=== PATIENT | male | born 1980 | race Caucasian/White ===

== ENCOUNTER 2019-02-24 13:49 | Outpatient (REF) | payer SELFPAY ==
[2019-02-24 19:16] LABS: ALT 23 U/L (16-63)
== END 2019-02-24 14:09 ==
LOC: NCHCN 13:49
PROVIDERS: PCP Family Medicine; Visit Provider Family Medicine
DX: E78.5 Hyperlipidemia, unspecified (principal)
CPT/HCPCS: 84460

== ENCOUNTER 2019-03-31 01:21 | Outpatient (CLI) | payer SELFPAY ==
--- NOTE | 2019-03-31 13:26 | DI.RAD_ITS ---
EXAM: XR CERVICAL SPINE COMP 4-5V INDICATION: CERVICALGIA, M54.2, RIGHT-SIDED PAIN. COMPARISON: No exams were available for comparison TECHNIQUE: 2D digital imaging was performed. FINDINGS: The odontoid is intact. The lateral masses are well aligned. There is normal alignment of the cervi presley spine. Anterior cervical fusion is seen at C4-C5. No acute fractures or subluxations are present. There is mild narrowing of the right neural foramen at C4-C5. Foramina are otherwise well maintained . The bones are normally mineralized. The soft tissues are unremarkable. IMPRESSION: Postsurgical changes at C4-C5. Mild narrowing of the right neural foramen at C4-C5.
== END 2019-03-31 01:41 ==
PROVIDERS: PCP Family Medicine; Visit Provider Family Medicine
DX: M54.2 Cervicalgia (principal); Z98.1 Arthrodesis status; M99.51 Intervertebral disc stenosis of neural canal of cervical region
CPT/HCPCS: 72050

== ENCOUNTER 2019-06-02 15:07 | Outpatient (CLI) | payer OTHER, SELFPAY ==
--- NOTE | 2019-06-02 14:35 | DI.MRI_ITS ---
EXAM: MR CERVICAL SPINE WO CLINICAL HISTORY: CERVICALGIA, M54.2. TECHNIQUE: Multiplanar multisequence MRI was performed. MR examination of the cervical spine was pe rformed according to the usual protocol. COMPARISON: MRI - CERVICAL SPINE WO CONT from 06/20/2013 FINDINGS: No bony central canal spinal stenosis is seen. No significant neural foraminal stenosis. There is p rior anterior fusion at C4-5. There is disc herniation at C3-4, which is broad-based but most prominent centrally where it causes m ild deformity of the anterior cord surface. No intracord signal abnormality seen. No other disc her niation identified. No other cord abnormality seen. Visualized posterior fossa structures appear in tact. IMPRESSION: Broad-based disc herniation most prominent centrally at C3-4 with impingement on and deformity of ant erior cord surface at this level. Prior anterior fusion at C4-5 noted.
== END 2019-06-02 15:27 ==
PROVIDERS: PCP Family Medicine; Visit Provider Family Medicine
DX: M54.2 Cervicalgia (principal); M50.21 Other cervical disc displacement, high cervical region; Z98.1 Arthrodesis status
CPT/HCPCS: 72141

== ENCOUNTER 2020-02-27 18:54 | Outpatient (REF) | payer OTHER, SELFPAY ==
[2020-02-27 19:18] LABS: HCT 42.3 % (40.0-50.0); HGB 14.1 g/dL (13.5-17.5); MCH 30.5 pg (27.0-33.0); MCHC 33.3 % (32.0-36.0); MCV 91.6 fL (80-95); MPV 10.5 fL (8.0-11.0); Platelet Count 212 10^3/uL (130-400); RBC 4.62 10^6/uL (4.36-5.78); RDW 11.9 % (11.8-14.1); RDW-SD 39.5 fL; WBC 6.38 10^3/uL (4.4-10.8)
[2020-02-27 19:51] LABS: ALT 32 U/L (16-63); AST 20 U/L (15-37); Albumin 4.4 g/dL (3.4-5.0); Alkaline Phosphatase 58 U/L (46-116); Anion Gap 7.2 mmol/L (3-11); BUN 14 mg/dL (7-18); Bilirubin, Total 0.4 mg/dL (0.2-1.0); CO2 28.8 mmol/L (21.0-32.0); CREATININE 1.09 mg/dL (0.70-1.30); Calcium 9.1 mg/dL (8.5-10.1); Chloride 102 mmol/L (98-107); Glucose 109 mg/dL (74-106); Potassium 3.7 mmol/L (3.5-5.1); Sodium 138 mmol/L (136-145); TSH (W/Ref FT4) 1.54 uIU/mL (0.36-3.74); Total Protein 7.5 g/dL (6.4-8.2)
== END 2020-02-27 19:14 ==
LOC: NCHCN 18:54
PROVIDERS: PCP Family Medicine; Visit Provider Family Medicine
DX: Z51.81 Encounter for therapeutic drug level monitoring (principal)
CPT/HCPCS: 80053; 85027; 84443

== ENCOUNTER 2021-09-05 15:08 | Emergency (ER) | payer SELFPAY ==
[2021-09-05] VITALS (18 sets, daily range): BP systolic 128–146; BP diastolic 72–97; PULSE 68–83; RESP 6–18; TEMP 36.7–37.3; O2SAT 94–100
--- NOTE | 2021-09-05 15:29 | ED.GENADUL_ITS ---
Discharge Plan Disposition Patient Disposition: HOME Condition: Improving Discharge Details Clinical Impression: Gastroenteritis, Dehydration, Hypokalemia Primary Care Provider: Saundra Lowery V ED Provider: Dylon Washington Home Meds and New Rx's Prescriptions: Continued quetiapine [Seroquel] 300 MG tablet 300 mg PO HS 0RF fluoxetine 40 mg capsule 40 mg DAILY 0RF Label Comments: TAKE 1 CAPSULE BY MOUTH ONCE DAILY trazodone 50 mg tablet 50 mg DAILY 0RF Label Comments: TAKE 1 TABLET BY MOUTH EVERY NIGHT omeprazole 40 mg capsule,delayed release(DR/EC) 40 mg DAILY 0RF Label Comments: TAKE 1 CAPSULE BY MOUTH ONCE DAILY simvastatin 40 mg tablet 40 mg DAILY 0RF Label Comments: TAKE ONE TABLET BY MOUTH EVERY DAY gabapentin 300 mg capsule 300 mg DAILY 0RF Label Comments: TAKE 2 CAPSULES BY MOUTH ONCE DAILY AT NIGHT Discharge Instructions Instructions: Hypokalemia (ED), Dehydration (ED), Gastroenteritis (ED) Additional Instructions: Small, frequent sips of fluids so that you maintain good hydration. You may slowly advance a bland diet. May use the provided Zofran for nausea if you have persistent vomiting or nausea. Return to the emergency department for any new concerns. Medical Decision Making This is a 41-year-old male who presents from home with his . The patient's had a GI illness, which the patient feels he subsequently contracted 5 days ago and from which she developed first loose watery stool and now nausea, vomiting and multiple episodes of emesis. Intermittently tolerant of liquids and his medications. He did not have syncope but does feel weak. No fever, no bloody stool. No known sick contacts. He is immunized against COVID-19. The patient is afebrile, interactive, he is dehydrated in appearance. Differential diagnosis includes gastroenteritis, atypical presentation of colitis or other bowel inflammatory process. Patient IV access established, screening labs obtained, fluids initiated, patient given antiemetics and PPI parenterally. The patient's CBC is reassuring. Electrolytes reveal a potassium of 2.8 which was supplemented in the emergency department. LFTs and lipase were unremarkable. Following 2 L of fluids, patient able to tolerate small amount of oral fluids. He feels better. Most consistent with gastroenteritis and dehydration with hypokalemia. He is improving. Will offer Zofran for home. He understands indications to seek reevaluation in the emergency department. HPI General Mode of arrival: ambulatory . Date/Time Provider Initiated Documentation: 09/05/21 15:16 . Limitations to Documentation: no limitations . Information obtained by: patient . History of Present Illness 41 year old M presents to the emergency department with the chief complaint of Nausea, vomiting, dehydration, described as moderate, and is localized to the abdomen. Patient reports no radiation. Patient started experiencing this day(s) and it has been intermittent. improves with No relieving factors improve symptom(s), Eating worsens symptoms . Patient notes loss of appetite, nausea/vomiting and weakness; denies chest pain, cough, shortness of breath and syncope. Patient did receive the following treatments prior to arrival, none Related Data Home Medications Medication Instructions Recorded Confirmed quetiapine 300 mg tablet (Seroquel) 300 mg PO HS 02/23/14 09/05/21 fluoxetine 40 mg capsule 40 mg DAILY 09/05/21 09/05/21 gabapentin 300 mg capsule 300 mg DAILY 09/05/21 09/05/21 omeprazole 40 mg capsule,delayed 40 mg DAILY 09/05/21 09/05/21 release simvastatin 40 mg tablet 40 mg DAILY 09/05/21 09/05/21 trazodone 50 mg tablet 50 mg DAILY 09/05/21 09/05/21 Allergies Allergy/AdvReac Type Severity Reaction Status Date / Time amoxicillin [Amoxicillin] Allergy Intermediate Hives Unverified 09/05/21 16:29 General Stated Complaint: Nausea/Vomit/Diar ANALIA: 3 Review of Systems Narrative: Chilled, feels weak and with malaise. Poor energy. No blood in stool or emesis. Has had loose stool, but now feels dry. No syncope. His had a similar illness but was more mild. Patient is immunized against COVID-19. 8 systems reviewed and otherwise negative PFSH All Active Problems (Updated 09/05/21 @ 18:17 by Dylon Washington MD) Gastroenteritis (Acute) Dehydration (Acute) Hypokalemia (Acute) Social History Smoking/Tobacco Use Status: Current every day Smoking risk assessment performed?: Yes Alcohol Intake: never Drug use: Never Substance use type: does not use Do you feel safe at home: Yes Do you feel safe in your relationship?: Yes Exam Narrative Exam Narrative: GEN: awake, alert, oriented 3. Pleasant, well groomed, interactive. HEAD: Normocephalic, atraumatic ENT: Mucous membranes dry, oropharynx unremarkable but with note of poor dentition External ear exam unremarkable EYES: PERRL, EOMI NECK: Full ROM, no JOSE, no menigismus CHEST/RESP: Nontender, clear to auscultation bilateral, no wheeze/rhonchi/rales CARDIOVASCULAR: RRR, no murmur, rub nato. 2+ Rad pulse bilateral ABDOMEN: Soft, nontender, no mass. + Increased/high-pitched bowel sounds EXT: Full ROM, no edema, no rash Neuro: Grossly normal neurologic exam, conversant, interactive. Psych: Speech fluent, thoughts congruent, affect normal Course Vital Signs Vital signs: Vital Signs Temperature 37.3 C 09/05/21 15:12 Pulse 83 09/05/21 15:12 Respiratory Rate 18 09/05/21 15:12 Blood Pressure 146/97 H 09/05/21 15:12 Pulse Oximetry 100 09/05/21 15:12 Temperature 37.3 C 09/05/21 15:12 Temperature Source Tympanic 09/05/21 15:12 Pulse 83 09/05/21 15:12 Respiratory Rate 18 09/05/21 15:12 Respiratory Effort 09/05/21 15:14 Blood Pressure 146/97 H 09/05/21 15:12 Blood Pressure Position Sitting 09/05/21 15:12 Pulse Oximetry 100 09/05/21 15:12 Oxygen Delivery Method Room Air 09/05/21 15:12 Oxygen Flow Rate 0 09/05/21 15:12 Pain Level 0 09/05/21 15:12
[2021-09-05] MEDS: Normal Saline 1,000 ML 1000 ML IV (15:30)
[2021-09-05] MEDS: Ondansetron 4 MG/2 ML VIAL IVP (15:30)
[2021-09-05 15:31] LABS: Abs Immature Grans 0.02 10^3/uL (0.0-0.06); Absolute Basophil Count 0.03 10^3/uL (0.0-0.2); Absolute Eosinophil Count 0.06 10^3/uL (0.0-0.7); Absolute Lymphocyte Count 2.27 10^3/uL (1.2-3.4); Absolute Monocyte Count 0.76 10^3/uL (0.1-0.8); Absolute Neutrophil Count 4.45 10^3/uL (1.2-6.7); Basophils % 0.4; Eosinophils % 0.8; HCT 43.7 % (40.0-50.0); HGB 15.6 g/dL (13.5-17.5); Immature Grans % 0.3; Lymphocytes % 29.9; MCHC 35.7 % (32.0-36.0); MCV 87 fL (80-95); MPV 9.7 fL (8.0-11.0); Neutrophils % 58.6; Platelet Count 313 10^3/uL (130-400); RBC 5.03 10^6/uL (4.36-5.78); RDW 11.6 % (11.8-14.1); WBC 7.59 10^3/uL (4.4-10.8)
[2021-09-05] MEDS: Pantoprazole 40 MG VIAL IVP (15:37)
[2021-09-05 15:43] LABS: ALT 41 U/L (16-63); AST 24 U/L (15-37); Albumin 4.7 g/dL (3.4-5.0); Alkaline Phosphatase 76 U/L (46-116); Anion Gap 12.3 mmol/L (3-11); BUN 12 mg/dL (7-18); Bilirubin, Total 0.9 mg/dL (0.2-1.0); CO2 26.7 mmol/L (21.0-32.0); Calcium 9.1 mg/dL (8.5-10.1); Chloride 98 mmol/L (98-107); Glucose 108 mg/dL (74-106); Lipase 142 U/L (73-393); Magnesium 2.7 mg/dL (1.8-2.4); Sodium 137 mmol/L (136-145); Total Protein 8.8 g/dL (6.4-8.2)
[2021-09-05 15:45] LABS: Potassium 2.8 mmol/L (3.5-5.1)
[2021-09-05] MEDS: Normal Saline 250 ML IV (16:10)
[2021-09-05] MEDS: POTASSIUM CHLORIDE 20 MEQ/100 ML BAG 50 MEQ IVPB (16:21)
[2021-09-05 17:45] LABS: Bilirubin Negative (Negative); Blood Negative (Negative); Clarity Clear (Clear); Glucose Negative (Negative); Ketones 80 mg/dL (Negative); Leukocyte Esterase Negative (Negative); Nitrite Negative (Negative); Urobilinogen 0.2 EU/dL (Up TO 0.2); pH 6.5 (5-8)
[2021-09-05] MEDS: Ondansetron O.D.T. 4 MG TABEF, 3 TABS/BTL PO (18:44)
--- NOTE | 2021-09-05 18:50 | NUR.NOTE ---
I reviewed and agree with Asa Lomax treatment and documentation.
== END 2021-09-05 18:49 | disposition home or self-care (01) ==
PROVIDERS: Emergency Provider Emergency Medicine; PCP Family Medicine
DX: K52.9 Noninfective gastroenteritis and colitis, unspecified (principal); E86.0 Dehydration; E87.6 Hypokalemia
CPT/HCPCS: 36415; 80053; 83690; 96361; 96365; 96366; 96375; 99284; 81003; 83735; 85025; J2405; J3480

== ENCOUNTER 2021-09-06 20:08 | Emergency (ER) | payer SELFPAY ==
[2021-09-06 20:16] VITALS: BP 137/75; PULSE 81; RESP 18; TEMP 37.3; O2SAT 99
--- NOTE | 2021-09-06 20:30 | DI.CT_ITS ---
Exam(s) CT ABDOMEN PELVIS W EXAM: CT ABDOMEN PELVIS W CLINICAL HISTORY: hx of intussusception, epigastric pain. TECHNIQUE: Imaging Protocol: Axial computed tomography images with coronal and sagittal reformatted images were created and reviewed CONTRAST MATERIAL: Intravenous: Omnipaque 350 Contrast volume:100 ml Oral: no COMPARISON: No exams were available for comparison FINDINGS: ABDOMEN: Lung Bases: Normal where visualized. Liver: Normal density. No measurable mass. Gallbladder and biliary tract: No radiodense calculus or dilation. Pancreas: Normal density, no abnormal calcifications or inflammatory process. Spleen: Normal. Kidneys: Normal size, contour and axis. No radiodense stones or obstructive uropathy. No masses seen. Adrenal glands: No masses seen. Abdominal Aorta: Abdominal portion non-dilated. Stomach: Nearly empty. Question of wall thickening. PELVIS: Bladder: No gross wall thickening. No calculi.No focal mass. Bowel: Normal quantity of stool. Intramural fat seen in the descending colon could be secondary to p rior episodes of inflammation. No obstruction or bowel wall thickening. Appendix normal. Peritoneal cavity: No ascites, collection or mesenteric inflammatory response. Bones: Within normal limits for age. Reproductive organs: Within normal limits. Lymph nodes: Unremarkable. Impression: Question of gastric wall thickening. No evidence of intussusception or acute inflammation in the small or large bowel. RADIATION DOSE DELIVERED: 733.66mGy.cm Total DLP DATA REPOSITORY: All CT scans at this facility are submitted to the National Radiology Data Registry (NRDR) Dose Index Registry (DIR) with the [employer] (ACR). RADIATION OPTIMIZATION: All CT scans at this facility use at least one of these dose optimization te chniques: automated exposure control; mA and/or kV adjustment per patient size (includes targeted exa ms where dose is matched to clinical indication); or iterative reconstruction.
--- NOTE | 2021-09-06 20:30 | RT.EKG_ITS ---
APPROVED REPORT Exam: Resting ECG Reason for Exam: epigastric pain Patient Location: E HR:70 bpm ECG Measurements Heart Rate 70 AXIS CO 119 P -8 QRSd 85 QRS 70 QT 433 T 60 QTc 467 Conclusion Sinus rhythm...normal P axis, V-rate 60- 99
[2021-09-06] MEDS: Lactated Ringers 1,000 ML 1000 ML IV (21:17)
[2021-09-06 21:19] LABS: Abs Immature Grans 0.02 10^3/uL (0.0-0.06); Absolute Basophil Count 0.02 10^3/uL (0.0-0.2); Absolute Eosinophil Count 0.01 10^3/uL (0.0-0.7); Absolute Lymphocyte Count 1.99 10^3/uL (1.2-3.4); Absolute Monocyte Count 0.52 10^3/uL (0.1-0.8); Absolute Neutrophil Count 6.32 10^3/uL (1.2-6.7); Basophils % 0.2; Eosinophils % 0.1; HCT 40.5 % (40.0-50.0); HGB 14.3 g/dL (13.5-17.5); Immature Grans % 0.2; Lymphocytes % 22.4; MCH 30.8 pg (27.0-33.0); MCHC 35.3 % (32.0-36.0); MCV 87 fL (80-95); MPV 9.8 fL (8.0-11.0); Monocytes % 5.9; Neutrophils % 71.2; Platelet Count 277 10^3/uL (130-400); RBC 4.64 10^6/uL (4.36-5.78); RDW 11.5 % (11.8-14.1); RDW-SD 36.9 fL; WBC 8.88 10^3/uL (4.4-10.8)
[2021-09-06 21:21] LABS: Bilirubin Negative (Negative); Blood Negative (Negative); Clarity Clear (Clear); Glucose Negative (Negative); Ketones 80 mg/dL (Negative); Leukocyte Esterase Negative (Negative); Nitrite Negative (Negative); Specific Gravity >= 1.030 (1.005-1.025); pH 6.5 (5-8)
[2021-09-06] MEDS: Omnipaque 350 MG/ML 100 ML BTL IJ (21:22)
[2021-09-06] MEDS: Ketorolac 15 MG/ML VIAL IVP (21:23)
[2021-09-06 21:33] LABS: ALT 31 U/L (16-63); AST 16 U/L (15-37); Albumin 4.3 g/dL (3.4-5.0); Alkaline Phosphatase 67 U/L (46-116); Anion Gap 11.6 mmol/L (3-11); BUN 9 mg/dL (7-18); Bilirubin, Total 0.7 mg/dL (0.2-1.0); CO2 24.4 mmol/L (21.0-32.0); Calcium 8.9 mg/dL (8.5-10.1); Chloride 101 mmol/L (98-107); Glucose 99 mg/dL (74-106); Lipase 172 U/L (73-393); Sodium 137 mmol/L (136-145); Total Protein 7.8 g/dL (6.4-8.2); Troponin I < 50 ng/L (<or=60)
--- NOTE | 2021-09-06 22:58 | DI.VRAD_ITS ---
PROCEDURE INFORMATION: Exam: CT Abdomen And Pelvis With Contrast Exam date and time: 09/06/2021 9:20 PM Age: 41 years old Clinical indication: Abdominal pain; Patient HX: HX of intussusception, epigastric pain TECHNIQUE: Imaging protocol: Computed tomography of the abdomen and pelvis with contrast. COMPARISON: No relevant prior studies available. FINDINGS: Lungs: No consolidation in the visualized lung bases. Liver: Normal in size. There is a 14 x 9 mm hypodensity in the left liver lobe adjacent to the falciform ligament consistent with focal fatty infiltration. Gallbladder and bile ducts: No calcified stones. No ductal dilation. Pancreas: Normal in size and homogeneous enhancement. No ductal dilation. Spleen: Normal. No splenomegaly. Adrenal glands: Normal. No mass. Kidneys and ureters: There is no hydronephrosis. No renal or obstructing ureteral calculi. Stomach and bowel: There is thickening of the gastric wall that may be secondary to gastritis or underdistension (series 4, image 17; series 6, image 17). There are multiple, diffuse small bowel loops with thickened florez consistent with enteritis (series 4, image 50; series 6, images 22-33). Bowel underdistension may present a similar picture. There is submucosal fat deposition in the colon (a fat halo sign; series 6, image 48). Appendix: No evidence of appendicitis. Intraperitoneal space: No free air. No significant fluid collection. Vasculature: There is no abdominal aortic aneurysm. Lymph nodes: No enlarged retroperitoneal or mesenteric lymph nodes. Urinary bladder: The bladder is decompressed. Reproductive: The prostate measures 4.8 cm in transverse dimension. Bones/joints: No acute fracture. Soft tissues: Normal. IMPRESSION: 1. No evidence of intussusception. 2. Findings suggestive of gastroenteritis. As there is gastric wall thickening, consider follow-up diagnostic examination to document resolution and exclude underlying neoplasm. 3. A fat halo sign in the colon. This may be seen in chronic colitis, particularly in inflammatory bowel disease such as Crohn disease. It may also be seen in asymptomatic obese patients. Dictated and Authenticated by: Francisco Mai MD. Ordering:TITI Huffman MD
[2021-09-06] MEDS: Potassium Chloride 20 MEQ TABCR 40 MEQ PO (23:07)
--- NOTE | 2021-09-06 23:20 | ED.GENADUL_ITS ---
Discharge Plan Disposition Patient Disposition: HOME Condition: Stable Discharge Details Clinical Impression: Hypokalemia, Gastroenteritis Primary Care Provider: Saundra Lowery V ED Provider: Armida Gamez Home Meds and New Rx's Prescriptions: New promethazine 25 mg tablet 25 mg PO ONCE Qty: 10 0RF potassium chloride 20 mEq tablet,ER particles/crystals 20 meq PO BID Qty: 10 0RF Continued quetiapine [Seroquel] 300 MG tablet 300 mg PO HS 0RF fluoxetine 40 mg capsule 40 mg DAILY 0RF Label Comments: TAKE 1 CAPSULE BY MOUTH ONCE DAILY trazodone 50 mg tablet 50 mg DAILY 0RF Label Comments: TAKE 1 TABLET BY MOUTH EVERY NIGHT omeprazole 40 mg capsule,delayed release(DR/EC) 40 mg DAILY 0RF Label Comments: TAKE 1 CAPSULE BY MOUTH ONCE DAILY simvastatin 40 mg tablet 40 mg DAILY 0RF Label Comments: TAKE ONE TABLET BY MOUTH EVERY DAY gabapentin 300 mg capsule 300 mg DAILY 0RF Label Comments: TAKE 2 CAPSULES BY MOUTH ONCE DAILY AT NIGHT Discharge Instructions Instructions: Hypokalemia (ED), Gastroenteritis (ED) Additional Instructions: phenergan for nausea and vomiting Take the Phenergan as needed for nausea and vomiting Follow-up with your PCP to review your CT findings and return earlier should you have new or worsening complaints clear liquid diet with jello, broth, gatorade bland diet tomorrow as tolerated Referrals: Saundra Lowery MD [Primary Care Provider] - Discharge Data Discharge Date/Time-TO BE ENTERED AT DEPARTURE: 09/06/21 23:26 Medical Decision Making Patient appears well, has CT of his abdomen and pelvis does not show acute abnormality per radiology interpretation Diagnostic labs, potassium of 3.0, increased from potassium of 2.8 yesterday, EKG without acute abnormality, troponin negative Magnesium reviewed from yesterday 2.7, did not recheck Feeling symptomatically improved after Phenergan Discharge home with phenergan prescription Discharge home potassium prescription Given low threshold to return with new or worsening Medical Records Medical records reviewed: Yes I reviewed the patient's medical records. Lab Data Lab results reviewed: Yes I reviewed the patient's lab results. ECG Data Prior ECG tracings: available for review HPI General Date/Time Provider Initiated Documentation: 09/06/21 20:23 . HPI Narrative: 41-year-old gentleman with history of gastroenteritis presents for repeat visit for epigastric pain associated with nausea. He states the vomiting stopped yesterday. He has had intermittent diarrhea but no diarrhea today. He denies any chest pain or shortness of breath. He denies any dizziness or weakness. Denies cough, fever, chills. Denies any blood in vomitus or stool. Girlfriend reportedly sick with similar symptoms 1 week ago. Denies any spoiled food or recent exotic travel. Related Data Home Medications Medication Instructions Recorded Confirmed quetiapine 300 mg tablet (Seroquel) 300 mg PO HS 02/23/14 09/06/21 fluoxetine 40 mg capsule 40 mg DAILY 09/05/21 09/06/21 gabapentin 300 mg capsule 300 mg DAILY 09/05/21 09/06/21 omeprazole 40 mg capsule,delayed 40 mg DAILY 09/05/21 09/06/21 release simvastatin 40 mg tablet 40 mg DAILY 09/05/21 09/06/21 trazodone 50 mg tablet 50 mg DAILY 09/05/21 09/06/21 potassium chloride 20 mEq 20 meq PO BID #10 tab 09/06/21 tablet,extended release(part/cryst) promethazine 25 mg tablet 25 mg PO ONCE #10 tab 09/06/21 Previous Rx's Medication Instructions Recorded potassium chloride 20 mEq 20 meq PO BID #10 tab 09/06/21 tablet,extended release(part/cryst) promethazine 25 mg tablet 25 mg PO ONCE #10 tab 09/06/21 Allergies Allergy/AdvReac Type Severity Reaction Status Date / Time amoxicillin [Amoxicillin] Allergy Intermediate Hives Unverified 09/06/21 20:21 General Stated Complaint: Abd Prob ANALIA: 3 Review of Systems All systems reviewed & are unremarkable except as noted in HPI and below PFSH All Active Problems (Updated 09/06/21 @ 23:16 by FARRAH Hopkins) Gastroenteritis (Acute) Dehydration (Acute) Hypokalemia (Acute) Social History Smoking/Tobacco Use Status: Former Tobacco Use Smoking risk assessment performed?: Yes Alcohol Intake: never Drug use: Never Substance use type: does not use Do you feel safe at home: Yes Do you feel safe in your relationship?: Yes Exam Const General: cooperative, comfortable and no acute distress HENMT Mouth: oral mucosae normal Eyes Pupils: PERRL Resp Effort & Inspection: normal respiratory effort Auscultation: clear to auscultation bilaterally Cardio Rate: regular rate Rhythm: regular rhythm GI Other: No abdominal bruit or pulsatile mass, mild tenderness to palpation in the epigastrium, no CVA tenderness Skin General skin exam: no rashes or lesions noted Neuro General: patient alert and patient oriented x3 Extrem Other: Distal pulses intact Course Vital Signs Vital signs: Vital Signs Temperature 37.3 C 09/06/21 20:16 Pulse 81 09/06/21 20:16 Respiratory Rate 18 09/06/21 20:16 Blood Pressure 137/75 09/06/21 20:16 Pulse Oximetry 99 09/06/21 20:16 Temperature 37.3 C 09/06/21 20:16 Temperature Source Skin 09/06/21 20:16 Pulse 81 09/06/21 20:16 Respiratory Rate 18 09/06/21 20:16 Respiratory Effort 09/06/21 20:19 Blood Pressure 137/75 09/06/21 20:16 Blood Pressure Position Sitting 09/06/21 20:16 Pulse Oximetry 99 09/06/21 20:16 Oxygen Delivery Method Room Air 09/06/21 20:16 Oxygen Flow Rate 0 09/06/21 20:16 Pain Level 8 09/06/21 20:16 Lab/Test Results Lab/Test Results: Laboratory Tests Range/Units 09/06/21 09/06/21 09/06/21 21:10 21:10 21:10 WBC (4.4-10.8) 10^3/uL 8.88 RBC (4.36-5.78) 10^6/uL 4.64 Hgb (13.5-17.5) g/dL 14.3 Hct (40.0-50.0) % 40.5 MCV (80-95) fL 87 MCH (27.0-33.0) pg 30.8 MCHC (32.0-36.0) % 35.3 RDW (11.8-14.1) % 11.5 L Plt Count (130-400) 10^3/uL 277 MPV (8.0-11.0) fL 9.8 Immature Gran % 0.2 Neutrophils % 71.2 Lymphocytes % 22.4 Monocytes % 5.9 Eosinophils % 0.1 Basophils % 0.2 Nucleated RBC % (0.0-0.3) % 0.0 Absolute Neutrophils (1.2-6.7) 10^3/uL 6.32 Absolute Lymphocytes (1.2-3.4) 10^3/uL 1.99 Absolute Monocytes (0.1-0.8) 10^3/uL 0.52 Absolute Eosinophils (0.0-0.7) 10^3/uL 0.01 Absolute Basophils (0.0-0.2) 10^3/uL 0.02 Sodium (136-145) mmol/L 137 Potassium (3.5-5.1) mmol/L 3.0 L Chloride (98-107) mmol/L 101 Carbon Dioxide (21.0-32.0) mmol/L 24.4 Anion Gap (3-11) mmol/L 11.6 H BUN (7-18) mg/dL 9 Creatinine (0.70-1.30) mg/dL 1.0 Estimated GFR/1.73 m2 (mL/min/1.73m2) >= 60.00 Glucose (74-106) mg/dL 99 Calcium (8.5-10.1) mg/dL 8.9 Total Bilirubin (0.2-1.0) mg/dL 0.7 AST (15-37) U/L 16 ALT (16-63) U/L 31 Alkaline Phosphatase (46-116) U/L 67 Troponin I (<or=60) ng/L < 50 Total Protein (6.4-8.2) g/dL 7.8 Albumin (3.4-5.0) g/dL 4.3 Lipase (73-393) U/L 172 Urine Color (Yellow) Yellow Urine Clarity (Clear) Clear Urine pH (5-8) 6.5 Ur Specific [place] (1.005-1.025) >= 1.030 H Urine Protein (Negative) mg/dL Negative Urine Ketones (Negative) mg/dL 80 H Urine Blood (Negative) Negative Urine Nitrite (Negative) Negative Urine Bilirubin (Negative) Negative Urine Urobilinogen (Up TO 0.2) EU/dL 1.0 H Ur Leukocyte Esterase (Negative) Negative Urine Glucose (Negative) mg/dL Negative
== END 2021-09-06 23:26 | disposition home or self-care (01) ==
PROVIDERS: Emergency Provider Physician Assistant; PCP Family Medicine
DX: E87.6 Hypokalemia (principal); K52.9 Noninfective gastroenteritis and colitis, unspecified; R10.13 Epigastric pain; Z87.19 Personal history of other diseases of the digestive system
CPT/HCPCS: 80053; 83690; 93005; 96361; 96365; 96375; 99285; 74177; 81003; 84484; 85025; 93010; 99284; J1885; J3490

== ENCOUNTER 2024-11-08 14:07 | Emergency (ER) | payer SELFPAY ==
[2024-11-08 14:33] VITALS: BP 148/96; PULSE 95; RESP 20; TEMP 36.7; O2SAT 97
[2024-11-08 15:07] VITALS: BP 148/96; PULSE 95; RESP 16; RESP 20; TEMP 36.7; O2SAT 97
[2024-11-08] MEDS: Normal Saline 1,000 ML 1000 ML IV (15:28)
[2024-11-08] MEDS: Ondansetron 4 MG/2 ML VIAL IVP (15:28)
[2024-11-08 15:36] LABS: Abs Immature Grans 0.01 10^3/uL (0.0-0.06); HCT 44.4 % (40.0-50.0); HGB 15.6 g/dL (13.5-17.5); Immature Grans % 0.1 %; MCH 31.1 pg (27.0-33.0); MCHC 35.1 % (32.0-36.0); MCV 88 fL (80-95); MPV 9.7 fL (8.0-11.0); Platelet Count 278 10^3/uL (130-400); RBC 5.02 10^6/uL (4.36-5.78); RDW 11.9 % (11.8-14.1); RDW-SD 37.6 fL; WBC 7.21 10^3/uL (4.4-10.8)
--- NOTE | 2024-11-08 15:38 | W.ED.GENAD ---
Discharge Plan Disposition Patient Disposition: Home Condition: Stable Discharge Details Clinical Impression: Nausea, Heat exposure, Medication withdrawal Primary Care Provider: Saundra Lowery V ED Provider: Bennett Sheriff Home Meds and New Rx's Prescriptions: New ondansetron 4 mg tablet,disintegrating 4 mg PO Q6H PRN (Reason: nausea and vomiting) Qty: 30 0RF No Action fluoxetine 40 mg capsule 40 mg PO DAILY Patient Comments: TAKE 1 CAPSULE BY MOUTH ONCE DAILY trazodone 50 mg tablet 50 mg PO DAILY Patient Comments: TAKE 1 TABLET BY MOUTH EVERY NIGHT omeprazole 40 mg capsule,delayed release(DR/EC) 40 mg PO DAILY Patient Comments: TAKE 1 CAPSULE BY MOUTH ONCE DAILY simvastatin 40 mg tablet 40 mg PO DAILY Patient Comments: TAKE ONE TABLET BY MOUTH EVERY DAY quetiapine 400 mg tablet extended release 24 hr 400 mg PO QPM Patient Comments: TAKE 1 TABLET BY MOUTH ONCE DAILY AT NIGHT propranolol 10 mg tablet 10 mg PO BID PRN Patient Comments: TAKE 1 TABLET BY MOUTH TWICE DAILY NEEDED FOR JITTERINESS/ANXIETY promethazine 25 mg tablet 25 mg PO ONCE PRN Discharge Instructions Additional Instructions: Continue Zofran as needed for nausea Clear liquids, Gatorade or Pedialyte to stay hydrated and advance your diet slowly as tolerated Restart your fluoxetine and this should help your symptoms as well Return if you are unable to keep anything down or tolerate your medicines HPI General Date/Time Provider Initiated Documentation: 11/08/24 15:02. Limitations to Documentation: no limitations. Information obtained by: patient. HPI Narrative: -year-old 44-year-old gentleman with past medical history of anxiety presents for evaluation of dehydration, dry mouth and fatigue. Patient states that his symptoms have been ongoing for the last few days and he has been working outside. He has been attempting to drink a lot of water, but he reports some nausea and vomiting and some crampy abdominal pain. he denies any diarrhea. He reports that he cannot get comfortable and has not been able to sleep at nighttime. He denies any fever or chills. 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 Related Data Home Medications ?Medication ?Instructions ?Recorded ?Confirmed fluoxetine 40 mg capsule 40 mg PO DAILY 09/05/21 11/08/24 omeprazole 40 mg capsule,delayed 40 mg PO DAILY 09/05/21 11/08/24 release simvastatin 40 mg tablet 40 mg PO DAILY 09/05/21 11/08/24 trazodone 50 mg tablet 50 mg PO DAILY 09/05/21 11/08/24 ondansetron 4 mg disintegrating 4 mg PO Q6H PRN nausea and 11/08/24 tablet vomiting #30 tabs promethazine 25 mg tablet 25 mg PO ONCE PRN 11/08/24 11/08/24 propranolol 10 mg tablet 10 mg PO BID PRN 11/08/24 11/08/24 quetiapine 400 mg tablet,extended 400 mg PO QPM 11/08/24 11/08/24 release 24 hr Previous Rx's ?Medication ?Instructions ?Recorded ondansetron 4 mg disintegrating 4 mg PO Q6H PRN nausea and 11/08/24 tablet vomiting #30 tabs Allergies Allergy/AdvReac Type Severity Reaction Status Date / Time amoxicillin (Amoxicillin) Allergy Intermediate Hives Verified 11/08/24 14:30 General Stated Complaint: GenMedical ANALIA: 3 Exam Narrative Exam Narrative: Review of Systems: All systems reviewed & are unremarkable except as noted in HPI and below Well-developed, no acute distress Afebrile NCAT PERRL, normal conjunctiva dry mucus membranes RRR, no murmur Unlabored respiratory effort, CTAB Nondistended abdomen , soft non tender Course Vital Signs Vital signs: Vital Signs Temperature 36.7 C 11/08/24 14:33 Pulse 95 H 11/08/24 14:33 Respiratory Rate 20 11/08/24 14:33 Blood Pressure 148/96 H 11/08/24 14:33 Pulse Oximetry 97 11/08/24 14:33 Temperature 36.7 C 11/08/24 15:07 Temperature Source Oral 11/08/24 15:07 Pulse 95 H 11/08/24 15:07 Respiratory Rate 16 11/08/24 15:07 Respiratory Effort Normal, Non-Labored 11/08/24 15:07 Respiratory Depth Normal 11/08/24 15:07 Respiratory Pattern Normal 11/08/24 15:07 Blood Pressure 148/96 H 11/08/24 15:07 Blood Pressure Position Sitting 11/08/24 15:07 Pulse Oximetry 97 11/08/24 15:07 Oxygen Delivery Method Room Air 07/02/25 15:07 Oxygen Flow Rate 0 11/08/24 15:07 Pain Level 8 11/08/24 15:28 Medical Decision Making Emergent evaluation of possible dehydration. Patient has been working outside and has been fairly warm outside. He states that he is having difficulty feeling hydrated and having a lot of dry mouth. Symptoms could be compounded by the fact that he has also missed a few doses of his fluoxetine. He could be experiencing withdrawal symptoms from this. The patient is hemodynamically stable and is not having any signs or symptoms of severe muscle cramping or rhabdo. Plan for IV fluid resuscitation, antiemetic. Lab work is Without significant abnormality. Patient resuscitated with IV fluids and antiemetic, he was feeling better. He was able to tolerate liquids, he was given a dose of fluoxetine and provided with Zofran at discharge. The patient will restart his fluoxetine. Strict return precautions advised. PFSH All Active Problems (Updated 11/08/24 @ 17:12 by Bennett Sheriff MD) Medication withdrawal (Acute) Heat exposure (Acute) Nausea (Acute) Social History Smoking/Tobacco Use Status: Former Tobacco Use Smoking risk assessment performed?: Yes Alcohol Intake: never Drug use: Never Substance use type: does not use Do you feel safe at home: Yes Do you feel safe in your relationship?: Yes PAWSS Have you Been Recently Intoxicated or Drunk Within the Last 30 days?: No Have you Ever Experienced Previous Episodes of Alcohol Withdrawal?: No Have you ever Experienced Withdrawal Seizures?: No Have you ever Experienced Delirium Tremens(DT)s?: No Have you ever undergone Alcohol Rehabilitation Treatment (i.e, inpt ot outpatient treatment programs)?: No Have you ever Experienced Blackouts?: No Have you ever Combined Alcohol with other Downers within the last 90 days?: No Have you ever Combined Alcohol with any other Substance of Abuse during the last 90 days?: No Positive Blood Alcohol level on Presentation? [PCS.BAL]: No Evidence of Increased Autonomic Activity (i.e. HR>120, tremor, sweating, agitation, nausea)?: Yes Result: 1
[2024-11-08 16:28] LABS: ALT 24 U/L (16-63); AST 16 U/L (15-37); Albumin 4.9 g/dL (3.4-5.0); Alkaline Phosphatase 59 U/L (46-116); Anion Gap 14.8 mmol/L (3-11); BUN 15 mg/dL (7-18); Bilirubin, Total 0.9 mg/dL (0.2-1.0); CO2 25.2 mmol/L (21.0-32.0); Calcium 9.1 mg/dL (8.5-10.1); Chloride 101 mmol/L (98-107); Creatine Kinase 103 U/L (39-308); Estimated GFR 96.37 (mL/min/1.73m2); Glucose 95 mg/dL (74-106); Magnesium 2.2 mg/dL (1.8-2.4); Potassium 3.4 mmol/L (3.5-5.1); Sodium 141 mmol/L (136-145); Total Protein 8.4 g/dL (6.4-8.2)
[2024-11-08 17:19] VITALS: BP 148/102; PULSE 84; O2SAT 99
[2024-11-08] MEDS: FLUoxetine 20 MG CAP PO (17:30)
== END 2024-11-08 17:52 | disposition home or self-care (01) ==
PROVIDERS: Emergency Provider Emergency Medicine; PCP Family Medicine
DX: R53.83 Other fatigue (principal); R11.2 Nausea with vomiting, unspecified; T43.205A Adverse effect of unspecified antidepressants, initial encounter; Z87.891 Personal history of nicotine dependence; X30.XXXA Exposure to excessive natural heat, initial encounter
CPT/HCPCS: 36415; 80053; 82550; 96374; 99283; 83735; 85025; J2405

== ENCOUNTER 2025-04-10 05:58 | Day surgery (SDC) | payer BC, SELFPAY ==
--- NOTE | 2025-04-09 16:11 | PDOC.DSDIS_ITS ---
Date of service: 04/10/25 Discharge Plan Disposition Patient Disposition: Home Condition: Good Discharge Details Reason For Visit: EGD Attending Provider: Bayron Ponce Primary Care Provider: Saundra Lowery V Home Meds and New Rx's Prescriptions: Continued albuterol sulfate [Ventolin HFA] 90 mcg/actuation HFA aerosol inhaler 2 puff inhalation Q6H PRN clonazepam [Klonopin] 1 mg tablet 1 mg PO BID PRN pantoprazole 40 mg tablet,delayed release (DR/EC) 40 mg PO DAILY dicyclomine 20 mg tablet 20 mg PO TID trazodone 50 mg tablet 50 mg PO DAILY Patient Comments: TAKE 1 TABLET BY MOUTH EVERY NIGHT simvastatin 40 mg tablet 40 mg PO DAILY Patient Comments: TAKE ONE TABLET BY MOUTH EVERY DAY quetiapine 400 mg tablet extended release 24 hr 400 mg PO QPM Patient Comments: TAKE 1 TABLET BY MOUTH ONCE DAILY AT NIGHT ondansetron 4 mg tablet,disintegrating 4 mg PO Q6H PRN (Reason: nausea and vomiting) Qty: 30 0RF Discontinued bisacodyl [Dulcolax (bisacodyl)] 5 mg tablet,delayed release (DR/EC) 5 mg PO ONCE Qty: 4 0RF Rx Instructions: take per colonoscopy instructions polyethylene glycol 3350 17 gram/dose powder 238 g PO ONCE Qty: 238 0RF Rx Instructions: take per colonoscopy instructions Discharge Instructions Instructions: Peptic ulcers, Gastritis (DC) Additional Instructions: Florencio, I hope you feel well after the procedure. Things went smoothly. With regards to the upper endoscopy, the abnormality seen on the esophagus CT scan looked normal to me, and I do not see anything worrisome in your esophagus. There is a little bit of inflammation towards the bottom part of the esophagus where it connects onto your stomach that is consistent with gastroesophageal reflux disease. I did some biopsies of this to evaluate for Damon's esophagus, but I suspect they will be normal. There is some evidence of gastritis, or irritation of the lining of the stomach. I did some biopsies of your stomach as well as the remainder of your esophagus as well just to make sure that there is nothing that I am missing by visual exam. Patients with gastritis often times have an infection with a bacteria called Helicobacter pylori. So we will have the pathologist test for that. Your colon also looks pretty normal to the naked eye. I did some biopsies of the last part of your small intestine known as the terminal ileum to evaluate for Crohn's disease. Although I do not suspect that to be the case. I also did some random biopsies along the length of your large intestine to look for collagenous colitis, which is oftentimes missed during visual exam. Incidentally, I removed 1 small bit of tissue from your colon as well that does have the appearance of a colon polyp. I do not suspect that this is at all related to your symptoms, but as part of routine colonoscopy, having those evaluated is important. All of these results will take a week or 2 to get back, but once I have that information I will be in touch. If you need anything in the meantime, do not hesitate to call. 1. If tolerated, consume a soft, low fiber diet for 1-2 days. [address] not drive, drink alcohol, operate machinery, make critical decisions, or do activities that require coordination or balance for 24 hours. 3. Because air was put into your colon during the procedure, expelling air from your rectum (passing gas or farting) is normal. 4. You may not have a bowel movement for 1-3 days because of the colonoscopy pre p. This is normal. 5. You may experience a sore throat for 24 to 48 hours. You may use throat lozenges or gargle with warm salt water to relieve the discomfort. 6. Because air was put into your stomach during the procedure, you may experience some belching. 7. Go directly to the emergency room if you notice any of the following: Develop chills (warm to touch), or if you have a thermometer and your temperature is above 101 Difficulty breathing or difficultly swallowing Persistent vomiting Severe abdominal pain, other than gas cramps Severe chest pain Black, tarry stools Any bleeding ? exceeding one tablespoon 8. Call your physician if the site where your intravenous was started becomes red, swollen, painful, and warm to touch. 9. Your physician has reviewed your pre-procedure medications. Please continue to take those medications as previously ordered. You will be given specific information/education regarding any changes to your medications before leaving. Stand Alone Forms: Portal Information Activity:: Activity as Tolerated Diet:: As Tolerated Discharge Orders Discharge Orders: Discharge Order (Routine); Ordered 04/09/25 Ordered By: Bayron Ponce DS: Diagnosis Discharge Diagnosis (1) GERD (gastroesophageal reflux disease): Status: Chronic Asessment and Plan: Follow-up on biopsy results
--- NOTE | 2025-04-09 16:13 | W.PM.ENDDOP ---
Date of service: 04/10/25 Endoscopy Report DATE OF PROCEDURE: 04/10/25 PRE-OP DIAGNOSIS: GERD PROCEDURE: EGD SURGEON: Bayron Ponce ANESTHESIA TYPE: General:No Airway COMPLICATIONS: None DISPOSITION: same day INDICATIONS: Florencio is a 44-year-old male with abdominal pain and gastroesophageal reflux disease. He has a CT scan that demonstrates some thickening of the esophageal wall that recommended direct visualization to rule out malignancy
[2025-04-10 06:15] VITALS: BP 127/84; PULSE 113; RESP 16; TEMP 36.8; O2SAT 97
[2025-04-10] MEDS: Lactated Ringers 1,000 ML 80 ML IV (06:55)
--- NOTE | 2025-04-10 07:02 | COLE_ITS ---
Date of service: 04/10/25 Time of Service: 08:16 Colonoscopy Report Date of procedure: 04/10/25 Pre-op diagnosis general: Abdominal pain with gastroesophageal reflux disease Post-op diagnosis procedure note: other (Gastritis, colon polyp) Procedure: EGD with biopsies and colonoscopy with biopsies and polypectomy Surgeon: Bayron Ponce Anesthesia Type: General:No Airway Estimated blood loss (mL): 10 Pathology: other (Nondirected biopsies of esophagus, biopsies of GE junction, nondirected biopsies of gastric antrum and body; biopsies of terminal ileum, nondirected colon biopsies, 0.25 cm flat polyp at 15 cm) Indications: Florencio is a 44-year-old male with nonfocal abdominal pain, and a longstanding history of gastroesophageal reflux disease. He has a CT scan that demonstrated some abnormalities of the esophagus, and possibility of colitis as well. Prep: Miralax/Dulcolax Procedure Start Time: 07:34 Procedure End Time: 07:57 Retraction Time: 10 Findings: Antral gastritis Procedure Description: After the initiation of anesthesia, and with the assistance of a bite block, I advanced a standard gastroscope through the mouth past the hypopharynx and into the esophagus.? Under the direct vision of the scope, I advanced down the esophagus towards the stomach.? The upper, mid, and lower portions of the esophagus were all normal. I saw no evidence of any masses. I saw no evidence of any active inflammation. The GE junction measures approximately 38 cm past the incisors. There is very mild irregularity of the Z-line. I advanced down into the stomach and insufflated into the rugae were obliterated. I performed retroflexion. I saw no evidence of any hiatal herniation. There is antral gastritis, without evidence of discrete ulceration. I can advance down through the pylorus with ease, and the duodenum is normal-appearing through the third portion. I then brought the camera back up to the antrum and perform some nondirected biopsies in the area of inflammation to rule out Helicobacter pylori. Similarly, I performed some biopsies of the gastric body with the same intent. These were all performed with cold forceps with minimal bleeding. I then brought the camera up to the GE junction and perform four-quadrant biopsies of the GE junction to rule out Damon's esophagus. Finally, I performed some nondirected biopsies along the length of the esophagus to rule out eosinophilic esophagitis in light of the changes seen on the CT scan. The camera was then removed, and Florencio was rolled into the left lateral decubitus position for the colonoscopy. Great care was taken to ensure that he was padded and supported appropriately. I began by performing an external anorectal exam.? Perineum and skin were normal, as was the anal verge.? There was no evidence of external hemorrhoids.? Next, I performed a digital rectal exam.? I did not appreciate any abnormal findings.? Next, I advanced a colonoscope into the rectal vault.? I performed retroflexion.? This appeared normal. There is no evidence of ulcerative colitis.? Using irrigation, I then advanced the colonoscope beyond the rectal folds and into the sigmoid colon before advancing towards the cecum.? The quality of the prep was excellent.? The scope was noted to be in the cecum by identification of the ileocecal valve and appendiceal orifice.? I cannulated the terminal ileum for several centimeters. This did not appear consistent with Crohn's disease, but given the nonspecific symptoms, I did perform cold forceps biopsies of the terminal ileum to rule that out. I then began withdrawing the colonoscope using repeated irrigation as necessary for full evaluation of the colonic mucosa. Several biopsies were performed along the length of the colon to rule out collagenous colitis. ?Once the scope was withdrawn to the level of the rectum, great care was taken to examine portions of the rectal folds.? In the upper portion of the rectal vault around 15 cm past the anal verge was a 0.25 cm flat polyp. This was removed with cold forceps without any issues. Finally, the scope was withdrawn and the patient was brought to the same-day surgery recovery unit as the anesthetic wore off. ?The findings and instructions were shared with the patient prior to discharge. [place] Bowel Prep [place] Bowel Prep Right Colon: 3 Left Colon: 3 Transverse Colon: 3 Total Score: 9
--- NOTE | 2025-04-10 07:06 | W.ANESPRE ---
General Info Date of Service Date Performed: 04/10/25 Height: 5 ft 10 in Weight: 77.2 kg Body Mass Index (BMI): 24.4 Surgical Procedure: Operation Date: 04/10/25 07:35 Proposed Procedure Side Surgeon p Colonoscopy/Gastroscopy Bayron Ponce MD Actual Procedure Side Surgeon p Colonoscopy/Gastroscopy Not Applicable Bayron Ponce MD Pre-Op Diagnosis Post-Op Diagnosis Recurrent abdominal pain Meds Allergies and Home Medications Allergies Allergy/AdvReac Type Severity Reaction Status Date / Time bupropion (From Wellbutrin) Allergy Severe Makes me Verified 04/10/25 06:34 very Angry Penicillins Allergy Severe Anaphylaxis Verified 04/10/25 06:34 propranolol Allergy Severe Dizziness/L Verified 04/10/25 06:34 ighthead amoxicillin (Amoxicillin) Allergy Intermediate Hives Verified 04/10/25 06:34 Home Medication ?Medication ?Instructions ?Recorded simvastatin 40 mg tablet 40 mg PO DAILY 09/05/21 trazodone 50 mg tablet 50 mg PO DAILY 09/05/21 ondansetron 4 mg disintegrating 4 mg PO Q6H PRN nausea and 11/08/24 tablet vomiting #30 tabs quetiapine 400 mg tablet,extended 400 mg PO QPM 11/08/24 release 24 hr albuterol sulfate 90 mcg/actuation 2 puff inhalation Q6H PRN 03/27/25 aerosol inhaler (Ventolin HFA) clonazepam 1 mg tablet (Klonopin) 1 mg PO BID PRN 03/27/25 dicyclomine 20 mg tablet 20 mg PO TID 03/27/25 pantoprazole 40 mg tablet,delayed 40 mg PO DAILY 03/27/25 release Current Visit Medications: Current Medications Generic Name Dose Route Start Last Admin Trade Name Freq PRN Reason Stop Dose Admin Ringer's Solution 1,000 mls @ 80 mls/hr 04/10/25 06:00 04/10/25 06:55 IV 04/10/25 23:59 80 mls/hr INFUSION MIKE Administration Sodium Chloride 0 ml 04/10/25 06:00 Normal Saline Flush 10 Ml Syr IV 04/10/25 23:59 PRN PRN Sodium Chloride 0 ml 04/10/25 06:00 Normal Saline 10 Ml Vial IJ 04/10/25 23:59 DIRECTED PRN Sterile Water 0 ml 04/10/25 06:00 Water,Injection,Sterile 10 Ml Vial IJ 04/10/25 23:59 DIRECTED PRN PFS Active Problems Active Problems: Problem Status Onset Code GERD (gastroesophageal reflux disease) Chronic K21.9 Nausea & vomiting Acute R11.2 Recurrent abdominal pain Acute R10.9 Asthma Chronic J45.909 Medical History Medical History Family history of colon cancer in father per referral in his 40's Family history of malignant neoplasm of digestive organ Disorder of stomach Gastroenteritis Dehydration Hypokalemia Anxiety disorder Hypomagnesemia Acute gastritis Intussusception of intestine Neck pain Shoulder joint pain Snoring Restless leg syndrome Chronic bipolar I disorder, most recent episode depressed Allergic rhinitis Sleep disorder Peptic ulcer disease Major depression, single episode Medical History Comments:: Pt. states when he wakes up he often has a panic attack. Surgical History Surgical History H/O cervical spine surgery Pinched nerve/disc degeneration; 2 plates/cadaver bone - Yesenia Carvajal, ~2014 Tobacco Smoking/Tobacco Use Status: Former Tobacco Use Alcohol Alcohol Intake: current Alcohol intake frequency: holidays/special occasions only Substance Use Substance use: Daily Substance use type: marijuana Details: Last smoke was last evening. Vital Signs and Lab Results Vital Signs Most Recent Vital Signs in EMR: Most Recent Vital Signs Temp Pulse Resp BP Pulse Ox 36.8 C 113 H 16 127/84 97 04/10/25 06:15 04/10/25 06:15 04/10/25 06:15 04/10/25 06:15 04/10/25 06:15 Imaging and Studies Imaging and Studies Study information below may be from another EMR and interpreted by another provider. Please see original notes in EMR for more complete details. EKG Summary: 09/06/21: Exam: Resting ECG Reason for Exam: epigastric pain Patient Location: E HR:70 bpm ECG Measurements Heart Rate 70 AXIS IL 119 P -8 QRSd 85 QRS 70 QT 433 T60 QTc 467 Conclusion Sinus rhythm...normal P axis, V-rate 60- 99 I have reviewed and I agree with the emergency room physician's ECG interpretation. Anesthesia Assessment and Plan Anesthesia History Personal History: No History of Anesthesia Complications Family History: No Family History of Anesthesia Complications Exercise Tolerance Exercise Tolerance: Metabolic Equivalents>4 Pertinent Negatives Pertinent Negatives: No Major Cardiovascular Symptoms or Complaints and No Major Pulmonary Symptoms or Complaints Cardiac & Pulmonary Exam Cardiac Exam: Normal S1/S2 Heart Sounds Pulmonary Exam: Clear Bilateral Breath Sounds Implantable Cardiac Device Does patient have a Pacemaker or an ICD?: No Airway Exam Known Difficult Airway: No Mallampati Class: 2 Mouth Opening: Normal (> 3cm) Thyromental Distance: Greater than 3 cm Neck Range of Motion: Full ROM Neck Circumference: Normal Teeth Condition: Normal Dentition ASA Classification ASA Score: ASA 2 Emergency Case?: No NPO Status NPO Status: NPO Clears >2 hours, Solids >8 hours Anesthesia Plan Resuscitation Status: Full Code Anesthesia Technique: General Anesthesia Airway Planned: Natural Airway Monitors Used: Standard Monitors
[2025-04-10 07:22] VITALS: BMI 24.4
--- NOTE | 2025-04-10 07:37 | BOWEL_PTH ---
PATIENT: Florencio Boyer LOC: [facility] U#:[id number] AGE/SX: 44/M ROOM: RE04/10/[address]: Bayron Ponce MD : 1980 BED: DIS: 04/10/2025 SPEC #: [id number] RECD: 04/10/25 12:50 STATUS: MIGUEL A RE #: [id number] WILY: 04/10/25 07:[address]: Bayron Ponce DEPT: Surgical Specimen RECD BY: Armida Aceves ENTERED: 04/10/25 12:52 SP TYPE: Bowel OTHR DR: Saundra Lowery V Tissues: 1 - STOMACH BIOPSY 2 - STOMACH BIOPSY 3 - ESOPHAGUS BIOPSY 4 - ESOPHAGUS BIOPSY 5 - BIOPSY BOWEL 6 - BIOPSY BOWEL 7 - BIOPSY BOWEL Procedures: GROSS AND MICRO LEVEL 4 Comments: [id number]
[2025-04-10 08:07] VITALS: BP 91/61; PULSE 87; RESP 16; TEMP 36.4; O2SAT 98
[2025-04-10 08:32] VITALS: BP 133/97; PULSE 117; RESP 16; TEMP 36.4; O2SAT 98
--- NOTE | 2025-04-10 08:49 | W.ANESPOSTOP ---
Postoperative Evaluation Date, Time and Location Date Performed: 04/10/25 Time Performed: 08:49 Patient Location: Day Surgery Unit Vital Signs Most Recent Imported Vital Signs: Most Recent Vital Signs Temp Pulse Resp BP Pulse Ox 36.4 C L 117 H 16 133/97 H 98 04/10/25 08:32 04/10/25 08:32 04/10/25 08:32 04/10/25 08:32 04/10/25 08:32 Pain Score Most Recent Pain Score: Most Recent Pain Score Pain Level 0 04/10/25 08:32 Assessment Mental Status: Awake (Alert & Oriented to Patient Baseline) Airway and Respiratory Function: Patent airway with normal (patient baseline) respiratory exam Cardiovascular Function: Hemodynamically Stable (Anxiety, elevated HR) Hydration Status: Adequately Hydrated Nausea & Vomiting: No Nausea or Vomiting Pain: Pt. Denies Any Pain Peripheral Nerve Block: Patient did not receive a nerve block
== END 2025-04-10 09:05 | disposition home or self-care (01) ==
PROVIDERS: PCP Family Medicine; Visit Provider Surgery
PROC: (CPT 45380; principal; 2025-04-10 07:30)
DX: R10.9 Unspecified abdominal pain (principal); K62.1 Rectal polyp; K21.9 Gastro-esophageal reflux disease without esophagitis; K29.70 Gastritis, unspecified, without bleeding; J45.909 Unspecified asthma, uncomplicated; Z80.0 Family history of malignant neoplasm of digestive organs; K31.9 Disease of stomach and duodenum, unspecified
CPT/HCPCS: 45380; 43239; 88305; J2003; J2250; J2704